=== PATIENT | male | born 1955 | race Hispanic/Latino ===

== ENCOUNTER 2018-05-17 08:51 | Emergency (ER) | payer MEDICARE, BC | END 2018-05-17 09:16 | disposition home or self-care (01) | LOC: SCSER 08:51 | DX: H10.9 Unspecified conjunctivitis (principal); I10 Essential (primary) hypertension; E11.9 Type 2 diabetes mellitus without complications; Z71.6 Tobacco abuse counseling; Z79.4 Long term (current) use of insulin; Z79.899 Other long term (current) drug therapy; F17.210 Nicotine dependence, cigarettes, uncomplicated | CPT/HCPCS: 99406 ==

== ENCOUNTER 2019-06-18 11:41 | Outpatient (CLI) | payer MEDICARE, BC | END 2019-06-18 11:42 | disposition home or self-care (01) | LOC: DTY/OP 11:41 | PROVIDERS: ATTEND Family Medicine | DX: E11.9 Type 2 diabetes mellitus without complications (principal) | CPT/HCPCS: 97802 ==